=== PATIENT | female | born 1985 ===

== ENCOUNTER 2017-12-15 15:42 | Inpatient (IN) ==
[2017-12-15] MEDS ORDERED: ONDANSETRON 4 MG/2 ML VIAL IV PRN ×2 (16:03→23:21)
[2017-12-15] MEDS ORDERED: MEPERIDINE 50 MG/1 ML VIAL IV PRN (16:03)
[2017-12-15] MEDS ORDERED: BUTORPHANOL 2 MG/ML VIAL IV PRN (16:30)
[2017-12-15] MEDS ORDERED: AMPICILLIN INJ 2,000 MG in SODIUM CHLORIDE 0.9% 100 ML IV SCH (16:30)
[2017-12-15] MEDS ORDERED: OXYTOCIN/LR 20 UNIT/1,000 ML BAG IV SCH (16:30)
[2017-12-15] MEDS ORDERED: LACTATED RINGERS 1,000 ML IV SCH (16:30)
[2017-12-15 17:21] LABS: Basophils % 0.2 % (0.0-0.8); Eosinophils % 0.3 % (0.00-10.9); Hematocrit 32.9 VOL% (35.7-47.0); Hemoglobin 10.9 GM/DL (12.0-16.0); Immature Granulocytes % 0.3 %; Immature Granulocytes Absolute 0.02 #; Lymphocytes % 32.4 % (21.3-54.2); Mean Corpuscular HGB Conc 33.1 GM/DL (32-36); Mean Corpuscular Hemoglobin 29 PG (27-34); Mean Corpuscular Volume 86.8 FL (87-102); Mean Platelet Volume 11.5 FL (9.6-12.0); Monocytes # 0.5 10*3/uL (0.11-0.8); Monocytes % 8.6 % (1.7-12.7); Neutrophils # 3.7 10*3/uL (1.4-7.4); Neutrophils % 58.2 % (38.7-73.9); Platelet Count 189 T/CUMM (130-400); Red Blood Count 3.79 MC/CUMM (3.8-5.5); Red Cell Distribution Width 15.6 % (9.3-17.3); White Blood Count 6.3 T/CUMM (4-12)
[2017-12-15 17:35] LABS: INR 0.9; PT Patient Result 9.7 SECS; Partial Thromboplastin Time 24.7 SECS (0-40)
[2017-12-15 17:58] LABS: Albumin 2.6 G/DL (3.4-5.0); Bilirubin,Total 0.4 MG/DL (0.2-1.0); Calcium 8.6 MG/DL (8.5-10.1); Osmolality,Calculated 274.4 MOS/KG (273-304); Potassium 3.9 MMOL/L (3.5-5.1); Total Protein 6.5 G/DL (6.4-8.3)
[2017-12-15] MEDS ORDERED: hydrOXYzine HCL 25 MG/1 ML VIAL IM PRN (19:41)
[2017-12-15] MEDS ORDERED: FAMOTIDINE 20 MG/2 ML VIAL IV ONE (19:41)
[2017-12-15] MEDS ORDERED: PROMETHAZINE 25 MG/1 ML VIAL IM ONE (19:41)
[2017-12-15] MEDS ORDERED: CITRIC ACID/SODIUM CITRATE 30 ML UDCUP PO ONE (19:41)
[2017-12-15] MEDS ORDERED: diphenhydrAMINE 50 MG/1 ML VIAL IV PRN ×2 (19:41)
[2017-12-15] MEDS ORDERED: ePHEDrine 50 MG/ML AMP IV PRN (19:41)
[2017-12-15] MEDS ORDERED: LACTATED RINGERS 1,000 ML IV ONE (19:41)
[2017-12-15] MEDS ORDERED: fentaNYL 2 MCG/ROPIV 0.2% EPID 150 ML EPIDURAL SCH (20:00)
[2017-12-15 21:39] LABS: Apearance,Urine CLEAR (Clear); Bilirubin,Urine Negative (Negative); Blood, Urine Negative (Negative); Glucose,Urine (UA) Negative (Negative); Ketones,Urine 80 mg/dL (Negative); Mucus,Urine Occasional /LPF (Occasional); Nitrite,Urine Negative (Negative); Protein,Urine Negative; RBC,Urine <1 /HPF (0-4); Squamous Epithelial Cell,Urine Occasional /HPF (0-10); Urine Color Yellow (Yellow); Urine Urobilinogen < 2.0 EU/DL (0.2-1.0); WBC,Urine <1 /HPF (0-6)
[2017-12-15] MEDS ORDERED: miSOPROStol 200 MCG TABLET ONE ×2 (23:05→23:41)
[2017-12-15] MEDS ORDERED: METHYLERGONOVINE 0.2 MG/1 ML AMP ONE (23:06)
[2017-12-15] MEDS ORDERED: CARBOPROST TROMETHAMINE 250 MCG/ML AMP IM ONE (23:07)
[2017-12-15] MEDS ORDERED: LANOLIN 50% CREAM 0.3 OZ TUBE TOP PRN (23:21)
[2017-12-15] MEDS ORDERED: WITCH HAZEL PADS 100/JAR TOP PRN (23:21)
[2017-12-15] MEDS ORDERED: IBUPROFEN 800 MG TABLET PO PRN (23:21)
[2017-12-15] MEDS ORDERED: BISACODYL 10 MG SUPP RECTAL PRN (23:21)
[2017-12-15] MEDS ORDERED: BENZOCAINE 20%/MENTHOL 0.5% SPRAY 56 GM CAN TOP PRN (23:21)
[2017-12-15] MEDS ORDERED: ACETAMINOPHEN 325 MG TABLET PO PRN (23:21)
[2017-12-15] MEDS ORDERED: DIPH/TET/ACEL PERT BOOSTER VACCINE 0.5 ML VIAL IM ONE (23:21)
[2017-12-15] MEDS ORDERED: RHO(D) IMMUNE GLOBULIN 300 MCG SYRINGE IM ONE (23:21)
[2017-12-15] MEDS ORDERED: oxyCODONE/ACETAMINOPHEN 5-325 MG TABLET PO PRN ×2 (23:21)
[2017-12-15] MEDS ORDERED: HYDROCORTISONE 2.5% RECTAL CREAM 30 GM TUBE TOP PRN (23:21)
[2017-12-15] MEDS ORDERED: MEASLES/MUMPS/RUBELLA VACCINE 0.5 ML VIAL SUBCUT ONE (23:21)
[2017-12-15] MEDS ORDERED: OXYTOCIN/LR 20 UNIT/1,000 ML BAG IV ONE (23:30)
[2017-12-16 03:57] LABS: Basophils % 0.3 % (0.0-0.8); Eosinophils % 0.1 % (0.00-10.9); Hematocrit 31.1 VOL% (35.7-47.0); Hemoglobin 10.5 GM/DL (12.0-16.0); Immature Granulocytes % 0.2 %; Immature Granulocytes Absolute 0.02 #; Lymphocytes % 20.1 % (21.3-54.2); Mean Corpuscular HGB Conc 33.8 GM/DL (32-36); Mean Corpuscular Hemoglobin 29 PG (27-34); Mean Corpuscular Volume 86.6 FL (87-102); Mean Platelet Volume 11.4 FL (9.6-12.0); Monocytes # 0.8 10*3/uL (0.11-0.8); Monocytes % 8.2 % (1.7-12.7); Neutrophils % 71.1 % (38.7-73.9); Platelet Count 171 T/CUMM (130-400); Red Blood Count 3.59 MC/CUMM (3.8-5.5); Red Cell Distribution Width 15.5 % (9.3-17.3); White Blood Count 9.9 T/CUMM (4-12)
[2017-12-16] MEDS: DOCUSATE SODIUM 100 MG CAPSULE PO SCH ×2 (11:45→21:28)
[2017-12-17] MEDS: DOCUSATE SODIUM 100 MG CAPSULE PO SCH (09:58)
[2017-12-17 10:21] VITALS: BP 145/94
== END 2017-12-17 12:35 | disposition home or self-care (01) | DRG 775 ==
LOC: N.LDOUT 15:42 → N.LD 15:50 → N.OB 12-16 12:09
PROVIDERS: ADMIT Obstetrics & Gynecology; ATTEND Obstetrics & Gynecology